=== PATIENT | female | born 1990 | race Caucasian/White ===

== ENCOUNTER 2016-11-19 11:13 | Outpatient (CLI) ==
[2016-09-01 15:30] VITALS: BMI 37.5
--- NOTE | 2016-11-19 12:26 | DI ---
EXAM: Radiographs, left elbow HISTORY: Left arm pain. COMPARISON: None available. TECHNIQUE: Three views. FINDINGS: Bone mineralization is normal. There is no fracture or dislocation. The joint spaces ar e maintained. No focal soft tissue abnormality is seen. IMPRESSION: No fracture or dislocation.
== END 2016-11-19 11:14 | disposition home or self-care (01) ==
LOC: RAD 11:13
PROVIDERS: ATTEND Physician Assistant
DX: M79.602 Pain in left arm (principal)

== ENCOUNTER 2017-03-04 21:37 | Emergency (ER) ==
[2017-03-04 21:47] VITALS: BP 153/99; TEMP 98; BMI 39.3
[2017-03-04] MEDS ORDERED: TORADOL IM STA (21:58)
[2017-03-04] MEDS ORDERED: MORPHINE 4 MG/ML SYRINGE IM STA (21:58)
[2017-03-04] MEDS ORDERED: PHENERGAN 25 MG/ML VIAL IM STA (21:58)
[2017-03-04 22:04] LABS: BILIRUBIN,URINE Negative (NEGATIVE); KETONES,URINE Negative (NEGATIVE); LEUKOCYTE ESTERASE ,URINE 1+ (NEGATIVE); NITRITE,URINE Negative (NEGATIVE); PH,URINE 5.5 (5-9); PROTEIN,URINE Negative (NEGATIVE); URINE, BLOOD Negative (NEGATIVE)
[2017-03-04 22:10] LABS: ADD URINE MICROSCOPIC YES
[2017-03-04 22:11] LABS: BACTERIA,URINE TRACE (NOT PRESENT)
--- NOTE | 2017-03-04 22:51 | CT ---
EXAM: CT scan abdomen pelvis without contrast HISTORY: Flank pain COMPARISON: None. FINDINGS: Contiguous axial images obtained through the abdomen pelvis without contrast utilizing 3 mL collimation. Sagittal and coronal reconstructions were imaged and reviewed. The visualized lung bases are clear. The gallbladder is contracted. The right lobe of liver is enlarged which may rep resent a normal variant. The pancreas spleen and adrenal glands have normal enhanced CT appearance. The kidneys are morphologically normal. There is umbilical hernia containing only fat.. There is a normal appendix. There is no evidence of free fluid or inflammatory changes.. There is mild tho racolumbar levoscoliosis. IMPRESSION: No acute intra-abdominal findings. Enlarged right lobe of the liver. Small umbilical hernia containing only fat.
--- NOTE | 2017-03-04 22:53 | CT ---
EXAM: CT scan thoracic spine HISTORY: Back pain COMPARISON: None. FINDINGS: Contiguous axial images obtained through the thoracic spine utilizing 3-mm collimation. Sagittal and coronal reconstructions were imaged and reviewed. The vertebral bodies are normal in he ight and alignment.. The facet joints are intact.. The central canal and foramen are patent throug hout. IMPRESSION: No acute findings.
[2017-03-04] MEDS ORDERED: DILAUDID 2 MG/ML SYRINGE IM STA (22:54)
[2017-03-04] MEDS ORDERED: DILAUDID 2 MG/ML SYRINGE ONE (22:56)
--- NOTE | 2017-03-04 22:56 | CT ---
EXAM: CT lumbar spine without intravenous contrast 03/04/2017. Sagittal and coronal reformatted im ages obtained HISTORY: Back pain COMPARISON: 03/04/2017 FINDINGS: A normal lumbar lordosis is maintained. Vertebral bodies appear intact without evidence of fracture. The facet joints align normally. There is no fracture or subluxation identified at any level. IMPRESSION: No acute post traumatic osseous abnormality of the lumbar spine.
--- NOTE | 2017-03-04 23:34 | ED.PDOC ---
General ED Provider: Dr. MARCELA GARCIA-ER Chief Complaint: Back Pain Stated Complaint: my back hurts and it goes down both legs--i saw alyssa for this about a month ago--marty been dealing with this for a long time--probably about a year Time Seen by Physician: 23:32 Mode of Arrival: Walk-In Information Source: Patient, Family Exam Limitations: No limitations [facility] and Triage Documentation Reviewed and Agree: Yes Musculoskeletal Complaint Exam - Back Pain Complaint/Exam Mechanism of Injury: Reports: No known trauma Onset/Duration: several weeks Symptoms Are: Still present Timing: Constant Initial Severity: Mild Current Severity: Moderate Location: Reports: Discrete Character: Reports: Throbbing, Spasmodic Aggravating: Reports: Movements, Lifting, Bending, Walking Alleviating: Reports: None Associated Signs and Symptoms: Denies: Swelling, Redness, Bruising, Fever, Weakness, Numbness, Tingling, Abdominal pain, Flank pain, Bladder incontinence, Bowel incontinence, Weight loss, Pain with weight bearing TAD Risk Factors: Reports: None AAA Risk Factors: Reports: None Cauda Equina Risk Factors: Reports: None Epidural Abcess Risk Factors: Reports: None Focal Tenderness: Yes Paraspinal Muscle Tenderness: Yes Paraspinal Muscle Spasm: Yes Scoliosis: No Lordosis: No Kyphosis: No SLR Test: Right Negative, Left Negative Hip Motion Testing Pain: Right Negative, Left Negative Focal Weakness: Present: None Focal Sensory Loss: Present: None Gait: Present: Abnormal Differential Diagnoses: Herniated Disk, Strain, Sprain Review of Systems - Review Of Systems Constitutional: Reports: No symptoms Eyes: Reports: No symptoms Ears, Nose, Mouth, Throat: Reports: No symptoms Respiratory: Reports: No symptoms Cardiac: Reports: No symptoms GI: Reports: No symptoms : Reports: No symptoms Musculoskeletal: Reports: Back pain Skin: Reports: No symptoms Neurological: Reports: No symptoms Endocrine: Reports: No symptoms Hematologic/Lymphatic: Reports: No symptoms All Other Systems: Reviewed and Negative Past Medical History - Past Medical History Previously Healthy: Yes Endocrine: Reports: None Cardiovascular: Reports: None Respiratory: Reports: None Hematological: Reports: None Gastrointestinal: Reports: None Genitourinary: Reports: None Neuro/Psych: Reports: None Musculoskeletal: Reports: None Cancer: Reports: None Last Menstrual Period: 2 WEEKS AGO - Surgical History General Surgical History: Reports: None - Family History Family History: Reports: Unknown - Social History Smoking Status: Former smoker Hx Substance Use: No Alcohol Screening: None Lives: With family - Immunizations Tetanus Shot up to Date: Yes Physical Exam - Physical Exam Appearance: Well-appearing, No pain distress, Well-nourished Eyes: CLEMENCIA ENT: Ears normal, Nose normal, Oropharynx normal Neck: Supple Respiratory: Airway patent, Breath sounds clear, Breath sounds equal, Respirations nonlabored Cardiovascular: RRR, Pulses normal, No rub, No murmur GI/: Soft, Nontender, No masses, Bowel sounds normal, No Organomegaly Musculoskeletal: Limited ROM Skin: Warm, Dry, Normal color Neurological: Sensation intact Psychiatric: Affect appropriate, Mood appropriate, Anxious Interpretation - Radiology Interpretation Radiology Interpretation By: Radiologist Radiology Results: Negative Exam Interpreted: CT Scan Re-Evaluation - Re-Evaluation Time of Re-Evaluation: 23:34 Status: Improved Vital Signs Stable: Yes Pain Level: 2 Appearance: NAD Lungs: Clear Skin: Warm and Dry Neuro: Alert and Oriented X3 CV: RRR Critical Care Note - Critical Care Note Total Time (mins): 0 Course - Course Orders, Labs, Meds: Lab Review 03/04/17 21:25 Urine Color Yellow Urine Clarity Clear Urine pH 5.5 Ur Specific Ethel 1.020 Urine Protein Negative Urine Glucose (UA) Negative Urine Ketones Negative Urine Blood Negative Urine Nitrite Negative Urine Bilirubin Negative Urine Urobilinogen 0.2 Ur Leukocyte Esterase 1+ Urine Microscopic WBC 2-5 Ur Squamous Epith Cells 2-5 Urine Bacteria Trace Orders Category Date Time Status URINALYSIS C & S IF INDICATED Stat LAB 03/04/17 21:25 Completed Hydromorphone HCl/Pf [Dilaudid 2 mg/ml Syringe] MEDS 03/04/17 22:56 Discontinued 2 mg .ROUTE .STK-MED ONE Hydromorphone HCl/Pf [Dilaudid 2 mg/ml Syringe] MEDS 03/04/17 22:54 Discontinued 2 mg IM ONCE STA Ketorolac Tromethamine [Toradol] MEDS 03/04/17 21:58 Discontinued 60 mg IM ONCE STA Morphine Sulfate [Morphine 4 mg/ml Syringe] MEDS 03/04/17 21:58 Discontinued 4 mg IM ONCE STA Promethazine HCl [Phenergan 25 mg/ml Vial] MEDS 03/04/17 21:58 Discontinued 25 mg IM ONCE STA CT ABDOMEN/PELVIS WO CONTRAST Stat RADS 03/04/17 21:[address] LUMBAR SPINE W/O CONTRAST Stat RADS 03/04/17 21:[address] THORACIC SPINE W/O CONTRAST Stat RADS 03/04/17 21:58 Completed Medications Discontinued Medications Generic Name Dose Route Start Last Admin Trade Name Angeline PRN Reason Stop Dose Admin Hydromorphone HCl 2 mg 03/04/17 22:54 03/04/17 22:59 Dilaudid 2 Mg/Ml Syringe IM 03/04/17 22:55 2 mg ONCE STA Administration Ketorolac Tromethamine 60 mg 03/04/17 21:58 03/04/17 22:21 Toradol IM 03/04/17 21:59 60 mg ONCE STA Administration Morphine Sulfate 4 mg 03/04/17 21:58 03/04/17 22:21 Morphine 4 Mg/Ml Syringe IM 03/04/17 21:59 4 mg ONCE STA Administration Promethazine HCl 25 mg 03/04/17 21:58 03/04/17 22:20 Phenergan 25 Mg/Ml Vial IM 03/04/17 21:59 25 mg ONCE STA Administration Vital Signs: Temp Pulse Resp BP Pulse Ox 03/04/17 21:38 98 F 85 20 153/99 H 98 Departure - Departure Time of Disposition: 23:34 Disposition: HOME SELF-CARE Discharge Problem: Backache Instructions: Back Pain (ED) Condition: Good Pt referred to PMD for follow-up: Yes Additional Instructions: norco 7.5mg q 4hrs prn pain#15--flexeril 10mg tid prn #30--talk to your doctor tomorrow about an mri Allergies/Adverse Reactions: Allergies No Known Drug Allergies Adverse Reaction (Verified 03/04/17 21:46) Home Medications: Ambulatory Orders Ziprasidone HCl [Geodon] 20 mg PO TID 09/01/16 Disposition Discussed With: Patient, Family
== END 2017-03-04 23:42 | disposition home or self-care (01) ==
LOC: ED 21:37
DX: M54.9 Dorsalgia, unspecified (principal)
CPT/HCPCS: 81001; 96372; 99283

== ENCOUNTER 2017-06-01 16:01 | Emergency (ER) ==
[2017-06-01 16:11] VITALS: BP 140/83; TEMP 98.4; BMI 40.6
[2017-06-01] MEDS ORDERED: AUGMENTIN 500-125 MG TAB PO STA (16:27)
[2017-06-01] MEDS ORDERED: TORADOL IM STA (16:27)
--- NOTE | 2017-06-01 16:32 | ED.PDOC ---
General ED Provider: Dr. PRISCILLA BLUE Chief Complaint: Tooth Problem Stated Complaint: Hurting lower left teeth and gum swollen , hurting. Time Seen by Physician: 16:30 Mode of Arrival: Walk-In Information Source: Patient Primary Care Provider: BIRDIE SINGLETON Nursing and Triage Documentation Reviewed and Agree: Yes EENT Complaint Exam - Dental/Oral Complaint/Exam Mechanism of Injury: No known trauma Symptoms Are: Still present Timing: Constant Initial Severity: Moderate Character: Reports: Dull, Aching Aggravating: Reports: Cold, Chewing Alleviating: Reports: None Associated Signs and Symptoms: Reports: Swelling, Foul odor, Foul taste in mouth Related History: Reports: Similar episode Cardiac Risk Factors: Reports: None Dental/Oral Surgical History: Reports: None Tooth Findings: Present: Percussion tenderness, Gross decay Cervical Lymphadenopathy Present: No Facial Swelling Present: Yes Teeth Picture: 1 - caries, swollen gums Differential Diagnoses: Dental Abcess Review of Systems - Review Of Systems Constitutional: Reports: No symptoms Eyes: Reports: No symptoms Ears, Nose, Mouth, Throat: Reports: No symptoms Respiratory: Reports: No symptoms Cardiac: Reports: No symptoms GI: Reports: No symptoms : Reports: No symptoms Musculoskeletal: Reports: No symptoms Skin: Reports: No symptoms Neurological: Reports: No symptoms Endocrine: Reports: No symptoms Hematologic/Lymphatic: Reports: No symptoms All Other Systems: Reviewed and Negative Past Medical History - Past Medical History Previously Healthy: Yes Endocrine: Reports: None Cardiovascular: Reports: None Respiratory: Reports: None Hematological: Reports: None Gastrointestinal: Reports: None Genitourinary: Reports: None Neuro/Psych: Reports: None Musculoskeletal: Reports: None Cancer: Reports: None Last Menstrual Period: now - Surgical History General Surgical History: Reports: None - Family History Family History: Reports: Unknown - Social History Smoking Status: Never smoker Hx Substance Use: No Alcohol Screening: None Physical Exam - Physical Exam Appearance: Well-appearing, No pain distress, Well-nourished Eyes: CLEMENCIA, EOMI, Conjunctiva clear ENT: Ears normal, Nose normal, Oropharynx normal Respiratory: Airway patent, Breath sounds clear, Breath sounds equal, Respirations nonlabored Cardiovascular: RRR, Pulses normal, No rub, No murmur GI/: Soft, Nontender, No masses, Bowel sounds normal, No Organomegaly Musculoskeletal: Normal strength, ROM intact, No edema, No calf tenderness Skin: Warm, Dry, Normal color Neurological: Sensation intact, Motor intact, Reflexes intact, Cranial nerves intact, Alert, Oriented Psychiatric: Affect appropriate, Mood appropriate Critical Care Note - Critical Care Note Total Time (mins): 0 Course - Course Orders, Labs, Meds: Orders Category Date Time Status Amoxicillin/Potassium Clav [Augmentin 500-125 mg Tab] MEDS 06/01/17 16:27 Discontinued 1 tab PO ONCE STA Ketorolac Tromethamine [Toradol] MEDS 06/01/17 16:27 Discontinued 30 mg IM ONCE STA Medications Discontinued Medications Generic Name Dose Route Start Last Admin Trade Name Freq PRN Reason Stop Dose Admin Amoxicillin/Clavulanate Potassium 1 tab 06/01/17 16:27 Augmentin 500-125 Mg Tab PO 06/01/17 16:28 ONCE STA Ketorolac Tromethamine 30 mg 06/01/17 16:27 Toradol IM 06/01/17 16:28 ONCE STA Vital Signs: Temp Pulse Resp BP Pulse Ox 06/01/17 16:06 98.4 F 103 H 20 140/83 98 Departure - Departure Time of Disposition: 16:33 Disposition: HOME SELF-CARE Discharge Problem: Toothache, Dental abscess Instructions: Dental Abscess (ED) Condition: Good Pt referred to PMD for follow-up: Yes Additional Instructions: dental hygiene discussed keep f/u with dentist Prescriptions: Amoxicillin/Potassium Clav [Augmentin 500-125 mg Tab] 1 tab PO Q12HR #20 tablet Hydrocodone/Acetaminophen [Railroad 5-325 Tablet] 1 tab PO TID PRN #12 tablet PRN Reason: PAIN Allergies/Adverse Reactions: Allergies No Known Drug Allergies Adverse Reaction (Verified 06/01/17 16:11) Home Medications: Ambulatory Orders Amoxicillin/Potassium Clav [Augmentin 500-125 mg Tab] 1 tab PO Q12HR #20 tablet 06/01/17 Hydrocodone/Acetaminophen [Railroad 5-325 Tablet] 1 tab PO TID PRN #12 tablet 06/01 Disposition Discussed With: Patient, Family
== END 2017-06-01 17:00 | disposition home or self-care (01) ==
LOC: ED 16:01
DX: K04.7 Periapical abscess without sinus (principal); K02.7 Dental root caries
CPT/HCPCS: 96372; 99282

== ENCOUNTER 2017-06-27 14:06 | Outpatient (CLI) ==
--- NOTE | 2017-06-27 14:43 | DI ---
Exam: Three x-rays of the right wrist. Comparison: Left wrist x-rays performed on the same day. Reason for exam: Pain in right wrist. FINDINGS: No acute fracture or dislocation. The joint spaces are well maintained. The scaphoid ap pears intact. No unexplained calcific soft tissue density or radiopaque retained foreign body. Impression: No acute fracture or dislocation in the right wrist
--- NOTE | 2017-06-27 14:43 | DI ---
Exam: Three x-rays of the left wrist. Comparison: Right wrist x-rays performed on this same day. Reason for exam: Other bursal cyst left wrist. FINDINGS: No acute fracture or malalignment. The joint spaces are well maintained. The cortices a ppear intact. The scaphoid is unremarkable. No unexplained calcific soft tissue density or radiopa que retained foreign body. Impression: No acute fracture or dislocation in the left wrist
== END 2017-06-27 14:07 | disposition home or self-care (01) ==
LOC: RAD 14:06
PROVIDERS: ATTEND Nurse Practitioner Family
DX: M25.531 Pain in right wrist (principal); M71.332 Other bursal cyst, left wrist

== ENCOUNTER 2017-11-25 15:12 | Outpatient (CLI) | END 2017-11-25 15:13 | disposition home or self-care (01) | LOC: LAB 15:12 | PROVIDERS: ATTEND Nurse Practitioner Family | DX: R05 Cough (principal); J02.9 Acute pharyngitis, unspecified | CPT/HCPCS: 87502; 87651 ==